=== PATIENT | male | born 1995 | race Caucasian/White ===

== ENCOUNTER 2018-12-29 15:13 | Emergency (ER) | payer MEDICAID, OTHER ==
[~2018-12-29] VITALS: Ht 172.7 cm; Wt 84.1 kg
[~2018-12-29 15:13] MED LIST: NOCURR
[2018-12-29] MEDS ORDERED: LIDOCAINE 5% TRANSDERMAL PATCH TD ONE (16:15)
[2018-12-29 17:36] VITALS: BP 112/84
== END 2018-12-29 17:45 | disposition home or self-care (01) ==
LOC: EMS 15:14
DX: S20.212A Contusion of left front wall of thorax, initial encounter (principal); F17.210 Nicotine dependence, cigarettes, uncomplicated; W17.89XA Other fall from one level to another, initial encounter; Y93.89 Activity, other specified; Y92.89 Other specified places as the place of occurrence of the external cause; Y99.8 Other external cause status
CPT/HCPCS: 71101

== ENCOUNTER 2019-11-01 01:55 | Emergency (ER) | payer MEDICAID ==
[~2019-11-01] VITALS: Ht 170.2 cm; Wt 84.1 kg
[2019-11-01] MEDS ORDERED: LIDOCAINE 1% 10 ML VIAL INJ ONE (02:15)
[2019-11-01 02:16] VITALS: BP 102/67
== END 2019-11-01 03:20 | disposition home or self-care (01) ==
LOC: EMS 01:55
DX: S01.81XA Laceration without foreign body of other part of head, initial encounter (principal); F17.210 Nicotine dependence, cigarettes, uncomplicated; W22.8XXA Striking against or struck by other objects, initial encounter; Y93.89 Activity, other specified; Y92.89 Other specified places as the place of occurrence of the external cause; Y99.8 Other external cause status
CPT/HCPCS: 12013; 99282; J3490

== ENCOUNTER 2020-03-01 22:07 | Emergency (ER) | payer SELFPAY ==
[~2020-03-01] VITALS: Ht 167.6 cm; Wt 75.0 kg
[2020-03-01 22:31] VITALS: BP 116/76
== END 2020-03-02 01:04 | disposition home or self-care (01) ==
LOC: EMS 22:07
DX: S39.94XA Unspecified injury of external genitals, initial encounter (principal); F17.210 Nicotine dependence, cigarettes, uncomplicated; X58.XXXA Exposure to other specified factors, initial encounter; Y93.89 Activity, other specified; Y92.89 Other specified places as the place of occurrence of the external cause; Y99.8 Other external cause status
CPT/HCPCS: Z7502

== ENCOUNTER 2023-08-19 12:53 | Emergency (ER) | payer MEDICAID, OTHER ==
[~2023-08-19] VITALS: Ht 170.2 cm; Wt 104.0 kg
[2023-08-19 12:59] VITALS: TEMP 97.1
[2023-08-19 16:30] VITALS: BP 115/74; PULSE 67; RESP 16
[2023-08-19] MEDS ORDERED: IBUP-1492 PO (16:32)
[2023-08-19] MEDS: IBUPROFEN 600 MG TABLET PO ONE (16:37)
== END 2023-08-19 16:52 | disposition home or self-care (01) ==
LOC: EMS 12:53
DX: S93.402A Sprain of unspecified ligament of left ankle, initial encounter (principal); X58.XXXA Exposure to other specified factors, initial encounter; Y93.89 Activity, other specified; Y92.89 Other specified places as the place of occurrence of the external cause; Y99.8 Other external cause status
CPT/HCPCS: 29515; 99283